=== PATIENT | female | born 1990 | race Two or more races ===

== ENCOUNTER → 2017-09-22 | Outpatient (CLI) | payer MEDICAID ==
[2017-09-25 16:37] LABS: % CD 4 POS LYMPH 39.7 % (30.8-58.5); % CD 8 POS LYMPH 43.1 % (12.0-35.5); ABSOLUTE CD 4 HELPER 675 /uL (359-1519); ABSOLUTE CD 8 SUPPRESSOR 733 /uL (109-897); CD BASOPHILS 0 % (Not Estab.); CD EOSINOPHILS 3 % (Not Estab.); CD MONOCYTES 8 % (Not Estab.); CD NEUTROPHILS 73 % (Not Estab.); CD4/CD8 RATIO 0.92 (0.92-3.72); EOSINOPHILS (ABSOLUTE) 0.4 x10E3/uL (0.0-0.4); HEMOGLOBIN 9.9 g/dL (11.1-15.9); IMMATURE GRANULOCYTES 1 % (Not Estab.); LYMPHS(ABSOLUTE) 1.7 x10E3/uL (0.7-3.1); MCH 26.2 pg (26.6-33.0); MCHC 32.4 g/dL (31.5-35.7); MCV 81 fL (79-97); MONOCYTES(ABSOLUTE) 0.8 x10E3/uL (0.1-0.9); NEUTROPHILS(ABSOLUTE) 8.2 x10E3/uL (1.4-7.0); PLATELETS 305 x10E3/uL (150-379); RBC 3.78 x10E6/uL (3.77-5.28); RDW 14.2 % (12.3-15.4)
[2017-09-26 07:29] LABS: IMMATURE GRANULOCYTES (ABS) 0.1 x10E3/uL (0.0-0.1)
[2017-09-26 14:18] LABS: HIV-1 RNA PCR QUANT <20 copies/mL (.)
== END ==
LOC: OD 09:03
PROVIDERS: ATTEND Midwife
DX: O98.713 Human immunodeficiency virus [HIV] disease complicating pregnancy, third trimester (principal)
CPT/HCPCS: 36415; 86360; 87536

== ENCOUNTER 2017-09-26 19:51 | Inpatient (IN) | payer MEDICAID ==
[2017-09-26] MEDS ORDERED: RINGERS SOLUTION,LACTATED 1,000 ML IV PRN (20:06)
[2017-09-26 20:26] LABS: ABSOLUTE EOSINOPHILS # (AUTO) 0.4 10^3/uL (0.0-0.6); ABSOLUTE LYMPHOCYTES (AUTO) 2.4 10^3/uL (0.5-4.7); ABSOLUTE MONOCYTES (AUTO) 1.2 10^3/uL (0.1-1.4); ABSOLUTE NEUT (AUTO) 9.3 10^3/uL (1.7-8.2); BASOPHILS % (AUTO) 0.3 % (0-2); HEMATOCRIT 28.4 % (36.0-47.0); HEMOGLOBIN 9.4 g/dL (12.0-15.5); LYMPHOCYTES % (AUTO) 17.9 % (13-45); MEAN CORPUSCULAR HEMOGLOBIN 26.1 pg (27.0-33.4); MEAN CORPUSCULAR HGB CONC 33.3 g/dL (32.0-36.0); MEAN CORPUSCULAR VOLUME 79 fl (80-97); MONOCYTES % (AUTO) 9.2 % (3-13); PLATELET COUNT 371 10^3/uL (150-450); RED BLOOD COUNT 3.61 10^6/uL (3.72-5.28); RED CELL DISTRIBUTION WIDTH 14.6 % (11.5-14.0); SEGMENTED NEUTROPHILS % (AUTO) 69.6 % (42-78); TOTAL CELLS COUNTED % (AUTO) 100 %; WHITE BLOOD COUNT 13.4 10^3/uL (4.0-10.5)
[2017-09-26 20:46] LABS: APPEARANCE,URINE CLOUDY; BILIRUBIN,URINE NEGATIVE (NEGATIVE); COLOR,URINE YELLOW; GLUCOSE, URINE 50 mg/dL (NEGATIVE); KETONES,URINE NEGATIVE (NEGATIVE); LEUKOCYTE ESTERASE,URINE LARGE (NEGATIVE); NITRITE,URINE NEGATIVE (NEGATIVE); PROTEIN,URINE NEGATIVE (NEGATIVE); URINE SPECIFIC GRAVITY 1.017; UROBILINOGEN,URINE NEGATIVE mg/dL (<2.0)
--- NOTE | 2017-09-26 20:58 | Admission Physical ---
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/2017, peds aware Admit Impression : Term, Intrauterine ; No Active Labor; Intact Membranes Admit Plan: Admit to Unit; Initiate Labor Induction Protocol ALLERGIES Medication Allergies: No Medication Allergies: No Known Allergies (09/26/2017) Latex: No Latex Allergies Food Allergies: N/A Environmental Allergies: N/A OBSTETRICAL HISTORY : 2 Para: 1 Term: 1 : 0 SAB: 0 IAB: 0 Ectopic: 0 Livin Cesareans: 0 VBACs: 0 Multiple Births: 0 Gestational Diabetes: No Rh Sensitization: No Incompetent Cervix: No CARLA: No Infertility: No ART Treatment: No Uterine Anomaly: No IUGR: No Hx Previous C/S: No Macrosomia: No Hx Loss/Stillborn: No PIH: No Hx : No Placenta Previa/Abruption: No Depression/PP Depression: No PTL/PROM: No Post Hemorrhage: No Current Procedures: Ultrasound; NST Obstetrical History Comments: G1 - Term baby boy G2 - current SEE RECORDS Alcohol: No Marijuana : No Cocaine: No Other Illicit Drugs: No Cigarettes: Never Smoker. [id number] MEDICAL HISTORY Diabetes: No Blood Transfusion: No Pulmonary Disease (Asthma, TB): Yes Breast Disease: No Hypertension: No Box Turner Surgery: No Heart Disease: No Hosp/Surgery: No Autoimmune Disorder: No Anesthetic Complications: No Kidney Disease: No Abnormal Pap Smear: No Neuro/Epilepsy: No Psychiatric Disorders: No Other Medical Diseases: No Hepatitis/Liver Disease: No Significant Family History: No Varicosities/Phlebitis: No Trauma/Violence : No Thyroid Dysfunction: No Medical History Comments: Hx - asthma, undetectable HIV (2012) INFECTIOUS HISTORY Gonorrhea: No Genital Herpes: No Chlamydia: No Tuberculosis: No Syphilis: No Hepatitis: No HIV/AIDS Exposure: Yes Rash or Viral Illness: No HPV: No Infectious History Comments: HIV positive - undetectable viral load (2012) PHYSICAL EXAM General: Normal HEENT: Normal Neurologic: Normal Thyroid: Deferred Heart: Normal Lungs: Normal Breast: Normal Back: Normal Abdomen: Normal Genitourinary Exam: Normal Extremities: Normal DTRs: Normal Pelvic Type: Adequate Physical Exam Comments: pelvis proven: 6 lbs 11 oz Vital Signs: Reviewed VAGINAL EXAM Dilatation: 2 Effacement: 60 Station: -1 Contraction Comments: rare MEMBRANES Membranes: Intact FETUS A Monitoring: External US FHR- Baseline: 135 Variability: Moderate 6-25bpm Accelerations: 15X15 Decelerations: None FHR Category: Category I Estimated Weight (gm): 3200 Presentation: Vertex Admit Comment: [facility] transfer, later care HIV +, undetectable viral load on 09/22/17 Managed by care clinic in [place], [facility] and recent visits scanned in to ob clinic record. Rubella non-immune Hx: asthma has albuterol for prn use Plan to admit pt start zidovudine 2mg/kg loading dose, then 1 mg/kg per hour until clamping of cord, hold oral antiretrovirals until after delivery Plan for cooks cath in the morning Doesn't plan for epdiural, desires natural childbirth. Care and plan coordinated with m, dr. mejias, dr. paul, and dr. vo Discussed with Dr. Larson and peds staff. PLANS FOR LABOR AND DELIVERY Labor and Delivery: None Pain Management: Natural Feeding Preference: Formula Circumcision: N/A INFORMED CONSENT Assignment: Lawrence Paul MD Signature: with User ID: [email or web address] : with User ID: [email or web address]
[2017-09-26 21:01] LABS: URINE AMPHETAMINES SCREEN NEGATIVE; URINE BARBITURATES SCREEN NEGATIVE; URINE BENZODIAZEPINES SCREEN NEGATIVE; URINE COCAINE SCREEN NEGATIVE; URINE MARIJUANA (THC) SCREEN NEGATIVE; URINE METHADONE SCREEN NEGATIVE; URINE PHENCYCLIDINE SCREEN NEGATIVE
[2017-09-26] MEDS ORDERED: ZIDOVUDINE IV ONE (22:00)
[2017-09-26] MEDS ORDERED: ZOLPIDEM TARTRATE 5 MG TABLET PO SCH (22:00)
[2017-09-26] MEDS ORDERED: DEXTROSE 5% IV ONE (22:00)
[2017-09-26] MEDS ORDERED: WATER IV ONE (22:00)
[2017-09-26] MEDS ORDERED: ZOLPIDEM TARTRATE 5 MG TABLET ONE (23:45)
[2017-09-26] MEDS: DEXTROSE 5% IV PRN (23:47)
[2017-09-26] MEDS: ZIDOVUDINE IV PRN (23:47)
[2017-09-26] MEDS: WATER IV PRN (23:47)
[2017-09-27] MEDS ORDERED: MISOPROSTOL 0.2 MG TABLET ONE (07:23)
[2017-09-27] MEDS ORDERED: OXYTOCIN/NORMAL SALINE 20 UNIT/1,000 ML RTUINJ ONE (07:23)
[2017-09-27] MEDS ORDERED: LIDOCAINE 1% INJ-PF (10 MG/ML) 30 ML SDV ONE (07:23)
[2017-09-27] MEDS ORDERED: OXYTOCIN/NORMAL SALINE 20 UNIT/1,000 ML RTUINJ IV PRN ×2 (07:58→16:45)
[2017-09-27] MEDS ORDERED: ONDANSETRON HCL INJ/PF 4 MG/2 ML SDV ONE (08:02)
[2017-09-27] MEDS ORDERED: ONDANSETRON HCL INJ/PF 4 MG/2 ML SDV IV ONE (08:04)
[2017-09-27] MEDS: DEXTROSE 5% IV PRN (11:13)
[2017-09-27] MEDS: ZIDOVUDINE IV PRN (11:13)
[2017-09-27] MEDS: WATER IV PRN (11:13)
[2017-09-27] MEDS ORDERED: EPHEDRINE SULFATE INJ 50 MG/1 ML AMPULE ONE ×2 (13:49→14:47)
[2017-09-27] MEDS ORDERED: BUPIVACAINE HCL 0.25 % INJ/PF (2.5 MG/1 ML) 30 ML VIAL ONE (13:50)
[2017-09-27] MEDS ORDERED: FENTANYL/BUPIVACAINE/NS/PF 300 MCG/150 ML RTUINJ EPI ONE (13:50)
--- NOTE | 2017-09-27 14:14 | L&D Progress Notes ---
PROGRESS NOTES Datetime Report Generated by CPN: 09/27/2017 14:14 PROGRESS NOTE Impression: Reassuring Heart Rate Procedures: Sterile Vag Exam Plan Other: may have epidural Vital Signs : Reviewed Comment: ctx very strong, desires epidural r/b/a discussed pt would like to proceed with epidural VAGINAL EXAM Dilatation: 7 Dilatation: 2 Effacement: 80 Effacement: 60 Station: 0 Station: -1 Contractions: 2-5 Contractions: rare MEMBRANES Membranes: Intact FETUS A FHR - Baseline: 135 Monitoring: External US Variability: Moderate 6-25bpm Accelerations: 15X15 Decelerations: None FHR Category: Category I Estimated Weight (gm): 3200 Presentation: Vertex SIGNATURE SIGNATURE: ,[id number] SIGNATURE: ,[id number] Assignment: Todd Breen MD Signature: with User ID: [email or web address] : with User ID: [email or web address]
[2017-09-27] MEDS ORDERED: ALBUTEROL SULFATE HFA (90 MCG/PUFF) 8 GM MDI (1 MDI/ER DISP) IH PRN (16:42)
[2017-09-27] MEDS ORDERED: BENZOCAINE/MENTHOL AEROSOL SPRAY 56 ML TOP PRN (16:45)
[2017-09-27] MEDS ORDERED: DIBUCAINE 1% OINTMENT 28 GM TP PRN (16:45)
[2017-09-27] MEDS ORDERED: MEASLES,MUMPS&RUBELLA VACC/PF 0.5 ML VIAL SUBCUT PRN (16:45)
[2017-09-27] MEDS ORDERED: ZOLPIDEM TARTRATE 5 MG TABLET PO PRN (16:45)
[2017-09-27] MEDS ORDERED: ACETAMINOPHEN WITH CODEINE #3 TABLET PO PRN (16:45)
[2017-09-27] MEDS ORDERED: DIPH/PERTUSS(ACELL)/TETANUS VAC/PF 0.5 ML SYR (>=10YO) IM PRN (16:45)
[2017-09-27] MEDS ORDERED: ALBUTEROL SULFATE HFA (90 MCG/PUFF) 200 PUFF/8.5 GM MDI IH PRN (16:48)
--- NOTE | 2017-09-27 17:12 | Delivery Summary ---
Del Sum A-C Datetime Report Generated by CPN: 09/27/2017 17:12 DELIVERY PERSONNEL DELIVERY PERSONNEL: [id number] Delivery Doctor:: Karoline Rodriguez CNM Labor and Delivery Nurse:: Anny Frias RNduct layer Nurse:: CHIDI Anderson Nursery Nurse:: Kylah Minaya RN Bioprocess Development Engineer/SELF STORAGE MANAGER: Julia Willis, ST MATERNAL INFORMATION Delivery Anesthesia: Epidural Medications After Delivery: Pitocin Bolus-Please Comment; Pitocin Drip 20 Units/1000ml NSS Maternal Complications: Other Complication Details: HIV + Provider Comments: of viable infant, head, shoulders and body delivered without difficulty, infant with spontaneous cry and respirations, to maternal abdomen, cord clamped X2 and infant cut free by pts after 2 min delay, spontaneous delivery of intact placetna via villarreal mechanism, appears intact 3 VC, vagina and perineum inspected, no lacerations noted, hemostasis acheived with external fundal massage and IV pitocin, infant to nursery per peds doc, mother in stable condition, routine pp care. LABOR SUMMARY EDC: 10/14/2017 00:00 No. Babies in Womb: 1 Attempted: No Labor Anesthesia: Epidural LABOR INFORMATION Reason for Induction: Other Reason for Induction- Other: HIV positive with undetectable viral load Onset of Labor: 09/27/2017 13:02 Complete Dilatation: 09/27/2017 16:17 Cervical Ripening Agents: Banerjee Balloon Oxytocin: Induction Group B Beta Strep: Negative Antibiotics # of Doses: 0 Steroids Given: None Reason Steroids Not Administered: Not Applicable MEMBRANES Membranes Rupture Method: Spontaneous Rupture of Membranes: 09/27/2017 13:02 Length of Rupture (hr): 3.38 Amniotic Fluid Color: Clear Amniotic Fluid Amount: Small Amniotic Fluid Odor: Normal STAGES OF LABOR Stage 1 hr: 3 Stage 1 min: 15 Stage 2 hr: 0 Stage 2 min: 8 Stage 3 hr: 0 Stage 3 min: 4 Total Time in Labor hr: 3 Total Time in Labor min: 27 VAGINAL DELIVERY Episiotomy: None Laceration #1: None Laceration Extension #1: N/A Laceration Repair: Not Applicable CSECTION DELIVERY Primary Indication: N/A Secondary Indication: N/A CSection Incidence: N/A Labor: N/A Elective: N/A CSection Incision: N/A BABY A INFORMATION Infant Delivery Date/Time: 09/27/2017 16:25 Method of Delivery: Vaginal Born in Route : No : N/A Forceps: N/A Vacuum Extraction: N/A Shoulder Dystocia : No PRESENTATION/POSITION BABY A Presentation: Cephalic Cephalic Presentation: Vertex Vertex Position: Left Occipital Anterior Breech Presentation: N/A PLACENTA INFORMATION BABY A Placenta Delivery Time : 09/27/2017 16:29 Placenta Method of Delivery: Spontaneous Placenta Status: Delivered SCORES BABY A Heart Rate 1 min: >100 bpm Resp Effort 1 min: Good Cry Reflex Irritability 1 min: Cough or Sneeze or Pulls Away Muscle Tone 1 min: Active Motion Color 1 min: Blue/Pale Resuscitation Effort 1 min: Tactile Stimulation SCORE 1 MIN: 8 Heart Rate 5 min: >100 bpm Resp Effort 5 min: Good Cry Reflex Irritability 5 min: Cough or Sneeze or Pulls Away Muscle Tone 5 min: Active Motion Color 5 min: Blue/Pale Resuscitation Effort 5 min: N/A SCORE 5 MIN: 8 Resuscitation Effort 10 min: N/A INFANT INFORMATION BABY A Gestational Age at Delivery: 37.4 Gestational Status: Early Term- 37- 38.6 Weeks Infant Outcome : Liveborn Infant Condition : Stable Sex: Female IDENTIFICATION BABY A Infant Verification Date/Time: 09/27/2017 16:33 ID Band Number: [id number] Mother's Name Verified: Yes Infant RN Verifying : Gisselle Bee RN Additional Verifying Personnel: [employer] RN WEIGHT/LENGTH BABY A Birthweight (gm): 2980 Infant Weight (lb): 6 Weight (oz): 9 Infant Length (in): 19.00 Infant Length (cm): 48.26 CORD INFORMATION BABY A No. Cord Vessels: 3 Nuchal Cord : N/A Cord Blood Taken: Yes-For Eval (Mom's Blood Type - or O+) Infant Suction: None ASSESSMENT BABY A Infant Complications: None Physical Findings at Delivery: Within Normal Limits Respirations: Appears Normal Skin to Skin: Yes Skin to Skin Time (min): 5 Test Technician/ALS Called : No Infant Care By: Cassi Minaya RN Transferred To: Nursery BABY B INFORMATION : N/A SIGNATURES Assignment: Todd Breen MD Signature: with User ID: [email or web address] : with User ID: [email or web address]
[2017-09-27] MEDS ORDERED: RALTEGRAVIR POTASSIUM 400 MG TABLET PO SCH (18:00)
[2017-09-27] MEDS: DOCUSATE SODIUM 100 MG CAPSULE PO SCH (21:04)
[2017-09-27] MEDS: FERROUS SULFATE 325 MG TABLET PO SCH (21:04)
[2017-09-27] MEDS: IBUPROFEN 800 MG TABLET PO SCH (21:17)
[2017-09-28] MEDS: ACETAMINOPHEN WITH CODEINE #3 TABLET PO PRN ×5 (00:31→21:26)
[2017-09-28] MEDS: IBUPROFEN 800 MG TABLET PO SCH ×3 (05:00→21:26)
[2017-09-28 08:41] LABS: HEMATOCRIT 27.2 % (36.0-47.0); HEMOGLOBIN 9.1 g/dL (12.0-15.5); MEAN CORPUSCULAR HEMOGLOBIN 26.2 pg (27.0-33.4); MEAN CORPUSCULAR HGB CONC 33.5 g/dL (32.0-36.0); MEAN CORPUSCULAR VOLUME 78 fl (80-97); PLATELET COUNT 310 10^3/uL (150-450); RED BLOOD COUNT 3.47 10^6/uL (3.72-5.28); RED CELL DISTRIBUTION WIDTH 14.4 % (11.5-14.0); WHITE BLOOD COUNT 15.2 10^3/uL (4.0-10.5)
--- NOTE | 2017-09-28 08:44 | PDOC PROGRESS REPORT ---
Subjective-OB Progress Note for:: 09/28/17 Physical Exam (OB) Vital Signs: Temp Pulse Resp BP Pulse Ox 98.1 F 95 18 117/65 99 09/27/17 19:48 09/27/17 19:48 09/27/17 19:48 09/27/17 19:48 09/27/17 19:48 Intake & Output 09/27/17 09/28/17 09/29/17 06:59 06:59 06:59 Weight 78.1 kg - Lochia Lochia Amount: Small 10-25 ml Lochia Color: Rubra/Red - Abdomen Description: Tender, Soft Hernia Present: No Bowel Sounds: Normoactive Flatus Presence: Present Stool: No Fundal Description: Firm, Midline Fundal Height: u/u - u/2 Objective-Diagnostic Laboratory: 09/28/17 07:52 09/28/17 07:52 WBC 15.2 H RBC 3.47 L Hgb 9.1 L Hct 27.2 L MCV 78 L MCH 26.2 L MCHC 33.5 RDW 14.4 H Plt Count 310
[2017-09-28] MEDS: DOCUSATE SODIUM 100 MG CAPSULE PO SCH ×2 (10:00→18:21)
[2017-09-28] MEDS: PRENATAL VITAMIN W DHA CAPSULE PO SCH (10:00)
[2017-09-28] MEDS: FAMOTIDINE 20 MG TABLET PO SCH (10:00)
[2017-09-28] MEDS ORDERED: EMTRICITABINE/TENOFOVIR 200-300 MG TABLET PO SCH (10:00)
[2017-09-28] MEDS ORDERED: (PENDING PHARMACY ID) (Ranitidine Hcl [Zantac 150 Mg Tablet] 150 MG) PO SCH (10:00)
[2017-09-28] MEDS: SENNOSIDES/DOCUSATE 8.6-50 MG 1 EACH TABLET PO SCH (10:00)
[2017-09-28] MEDS: FERROUS SULFATE 325 MG TABLET PO SCH ×2 (10:00→18:21)
[2017-09-28] MEDS ORDERED: ONDANSETRON 4 MG TAB.RAPDIS PO ONE (16:00)
[2017-09-28 18:11] LABS: APPEARANCE,URINE CLEAR; BILIRUBIN,URINE NEGATIVE (NEGATIVE); COLOR,URINE YELLOW; GLUCOSE, URINE NEGATIVE (NEGATIVE); KETONES,URINE NEGATIVE (NEGATIVE); LEUKOCYTE ESTERASE,URINE NEGATIVE (NEGATIVE); NITRITE,URINE NEGATIVE (NEGATIVE); PROTEIN,URINE NEGATIVE (NEGATIVE); URINE SPECIFIC GRAVITY 1.015; UROBILINOGEN,URINE NEGATIVE mg/dL (<2.0)
[2017-09-29] MEDS: IBUPROFEN 800 MG TABLET PO SCH (05:16)
--- NOTE | 2017-09-29 07:45 | PDOC DISCHARGE SUMMARY ---
Final Diagnosis Discharge Date: 09/29/17 Discharge Data - Discharge Medication Prescriptions: Docusate Sodium [Colace 100 mg Capsule] 100 mg PO BID #60 capsule Ferrous Sulfate [Feosol 325 mg Tablet] 325 mg PO BID #60 tablet Ibuprofen [Motrin 800 mg Tablet] 800 mg PO Q8 #60 tablet Home Medications: Albuterol Sulfate [Ventolin Hfa] 1 - 2 puff IH Q4 PRN 10/04/15 Emtricitabine/Tenofovir [Truvada 200 mg-300 mg Tablet] 1 each PO DAILY 10/04/15 Raltegravir Potassium [Isentress 400 mg Tablet] 400 mg PO BID 10/04/15 Vit/Iron Fum/Folic AC [ Tablet] 1 each PO DAILY 09/26/17 Promethazine HCl [Phenergan 25 mg Tablet] 25 - 50 mg PO ASDIR PRN 09/26/17 Ranitidine HCl [Zantac 150 mg Tablet] 150 mg PO DAILY 09/26/17 Docusate Sodium [Colace 100 mg Capsule] 100 mg PO BID #60 capsule 09/29/17 Ferrous Sulfate [Feosol 325 mg Tablet] 325 mg PO BID #60 tablet 09/29/17 Ibuprofen [Motrin 800 mg Tablet] 800 mg PO Q8 #60 tablet 09/29/17 Gestational Age: 37.4 Reason(s) for Admission: Induction of Labor Procedures: NST Intrapartum Procedure(s): Spontaneous Vaginal Delivery - [place] Data Baby 1 Female at 1 minute: 8 at 5 minutes: 8 Weight: 2980 kg Home with Mother: Yes Complications: No - Diagnosis Test Laboratory: Temp Pulse Resp BP Pulse Ox 98.5 F 84 18 133/60 H 100 09/28/17 20:03 09/28/17 20:03 09/28/17 20:03 09/28/17 20:03 09/28/17 20:03 09/26/17 09/26/17 09/28/17 20:13 20:13 07:52 RBC 3.61 L 3.47 L Hgb 9.4 L 9.1 L Hct 28.4 L 27.2 L Urine Opiates Screen NEGATIVE - Discharge information/Instructions Discharge Activity: Activity As Tolerated, No Driving, Pelvic Rest, No tub bath Discharge Diet: Regular Disposition: HOME, SELF-CARE Follow up with: [facility] in: 3, Weeks
[2017-09-29 08:26] VITALS: BP 130/80
[2017-09-29] MEDS: PRENATAL VITAMIN W DHA CAPSULE PO SCH (10:14)
[2017-09-29] MEDS: SENNOSIDES/DOCUSATE 8.6-50 MG 1 EACH TABLET PO SCH (10:15)
[2017-09-29] MEDS: FAMOTIDINE 20 MG TABLET PO SCH (10:15)
[2017-09-29] MEDS: DOCUSATE SODIUM 100 MG CAPSULE PO SCH (10:15)
[2017-09-29] MEDS: FERROUS SULFATE 325 MG TABLET PO SCH (10:16)
== END 2017-09-29 12:35 | disposition home or self-care (01) | DRG 774 ==
LOC: LR 19:51 → 2N 09-27 18:30
PROVIDERS: ADMIT Obstetrics & Gynecology; ATTEND Obstetrics & Gynecology
PROC: 4A1HXCZ Monitoring of Products of Conception, Cardiac Rate, External Approach (ICD-10-PCS; 2017-09-26)
PROC: 10E0XZZ Delivery of Products of Conception, External Approach (ICD-10-PCS; principal; 2017-09-27)
PROC: 3E033VJ Introduction of Other Hormone into Peripheral Vein, Percutaneous Approach (ICD-10-PCS; 2017-09-27)
DX: O99.513 Diseases of the respiratory system complicating pregnancy, third trimester (principal); O98.72 Human immunodeficiency virus [HIV] disease complicating childbirth; J45.909 Unspecified asthma, uncomplicated; Z21 Asymptomatic human immunodeficiency virus [HIV] infection status; Z79.899 Other long term (current) drug therapy; Z3A.37 37 weeks gestation of pregnancy; Z37.0 Single live birth
CPT/HCPCS: 36415; 80307; 81001; 81005; 82962; 85025; 85027; 86592; 86850; 86900; 86901; 94760; J2405; J2590; J3010; J3485; J3490; J7060; S0119